=== PATIENT | female | born 1950 | race Caucasian/White ===

== ENCOUNTER 2020-10-25 13:46 | Observation (INO) | payer MEDICARE, MEDICAID ==
[~2020-10-25] VITALS: Ht 162.6 cm; Wt 69.4 kg
[2020-10-25 16:14] LABS: BASOPHILS # (AUTO) 0.1 X10'3 (0-0.2); BASOPHILS % (AUTO) 1.1 % (0-1); EOSINOPHILS # (AUTO) 0.3 X10'3 (0-0.9); EOSINOPHILS % (AUTO) 5.1 % (0-6); HEMATOCRIT 40.5 % (35.0-45.0); HEMOGLOBIN 13.8 g/dl (12.0-16.0); LYMPHOCYTES # (AUTO) 1.2 X10'3 (1.1-4.8); LYMPHOCYTES % (AUTO) 18.2 % (21-51); MEAN CORPUSCULAR HEMOGLOBIN 32.4 PG (27.0-31.0); MEAN CORPUSCULAR VOLUME 95.4 FL (78-98); MEAN PLATELET VOLUME 8.6 FL (7.4-10.4); MONOCYTES # (AUTO) 0.3 X10'3 (0-0.9); MONOCYTES % (AUTO) 5.2 % (2-12); NEUTROPHILS # (AUTO) 4.7 X10'3 (1.8-7.7); NEUTROPHILS % (AUTO) 70.4 % (42-75); PLATELET COUNT 244 X10'3 (140-440); RED BLOOD COUNT 4.25 X10'6 (4.20-5.60); RED CELL DISTRIBUTION WIDTH 12.7 % (11.5-14.5); WHITE BLOOD COUNT 6.7 X10'3 (4.5-11.0)
--- NOTE | 2020-10-25 16:25 | NUR ---
Unable to obtain urine sample at this time, patient missed specimen collection device.
--- NOTE | 2020-10-25 16:27 | NUR ---
Tele neuro in process at this time.
[2020-10-25 16:32] LABS: ALANINE AMINOTRANSFERASE 17 U/L (12-78); ALBUMIN 3.9 G/DL (3.4-5.0); ALBUMIN/GLOBULIN RATIO 0.8 (1.1-1.5); ALKALINE PHOSPHATASE 109 IU/L (46-116); ANION GAP 10 (8-16); ASPARTATE AMINO TRANSFERASE 17 U/L (10-37); BILIRUBIN,TOTAL 0.4 MG/DL (0.1-1.0); BLOOD UREA NITROGEN 25 MG/DL (7-18); BUN/CREATININE RATIO 20.8 (6.6-38.0); CALCIUM 9.3 MG/DL (8.5-10.1); CHLORIDE 102 MMOL/L (99-107); GLUCOSE 92 MG/DL (70-104); SODIUM 140 MMOL/L (135-145); TOTAL CARBON DIOXIDE 27.9 MMOL/L (24-32); TOTAL PROTEIN 8.7 G/DL (6.4-8.2); eGFR 45 ML/MIN
[2020-10-25 16:45] LABS: PARTIAL THROMBOPLASTIN TIME 25 SECONDS (22-32)
[2020-10-25] MEDS ORDERED: aspirin 325mg tablet PO ONE (17:15)
[2020-10-25] MEDS ORDERED: mag hydrox/Alum hydrox/simeth 30ml oral suspension PO PRN (17:45)
[2020-10-25] MEDS ORDERED: morphine 2 MG/ML inj. syringe IV PRN ×2 (17:45)
[2020-10-25] MEDS ORDERED: HYDROcodone/acetaminophen 10/325mg tab PO PRN (17:45)
[2020-10-25] MEDS ORDERED: ondansetron/PF 4mg/2ml inj IV PRN (17:45)
[2020-10-25] MEDS ORDERED: HYDROcodone/acetaminophen 5mg/325mg tablet PO PRN (17:45)
[2020-10-25] MEDS ORDERED: magnesium hydroxide 30ml (MOM) UD suspension PO PRN (17:45)
[2020-10-25] MEDS ORDERED: acetaminophen 325mg tablet PO PRN ×2 (17:45)
[2020-10-25] MEDS ORDERED: PARO30TA4 PO (17:52)
[2020-10-25] MEDS ORDERED: BUPR100T16 PO (17:52)
[2020-10-25] MEDS ORDERED: PROP20TA6 PO (17:52)
[2020-10-25 18:21] LABS: CHOL/HDL RATIO 3.9 (0.00-4.99); CHOLESTEROL 270 MG/DL (0-200); HDL CHOLESTEROL 69 MG/DL (35-60); LDL CHOLESTEROL 183 MG/DL (50-100); TRIGLYCERIDES 97 MG/DL (20-135)
[2020-10-25 18:34] LABS: HEMOGLOBIN A1C 5.6 % (4.5-6.2)
[2020-10-25] MEDS ORDERED: ASPI-1140 PO (19:54)
[2020-10-25] MEDS: docusate sod 100mg capsule PO SCH (19:59)
[2020-10-25 21:43] LABS: CLARITY,URINE CLEAR (Clear); COLOR,URINE YELLOW (Yellow); GLUCOSE, URINE NEGATIVE (Neg); KETONES,URINE 15 mg/dl (Neg); LEUKOCYTE ESTERASE ,URINE SMALL (Neg); NITRITES, URINE NEGATIVE (Neg); OCCULT BLOOD,URINE NEGATIVE (Neg); PROTEIN,URINE NEGATIVE (Neg); UROBILINOGEN,URINE 0.2 E.U/dL (0.2-1.0)
[2020-10-25 21:56] LABS: UA COLLECTION TYPE CLN CATCH MIDSTREAM
[2020-10-25 21:58] LABS: RBC,URINE NONE SEEN /HPF (0-2); WBC,URINE 0-4 /HPF (0-4)
[2020-10-25 21:59] LABS: BACTERIA,URINE FEW /HPF (Neg); SQUAMOUS EPITHELIAL CELL,UR NONE SEEN /LPF (FEW)
[2020-10-26 02:39] LABS: BASOPHILS # (AUTO) 0.1 X10'3 (0-0.2); EOSINOPHILS # (AUTO) 0.3 X10'3 (0-0.9); HEMATOCRIT 37.3 % (35.0-45.0); HEMOGLOBIN 12.6 g/dl (12.0-16.0); LYMPHOCYTES # (AUTO) 1.9 X10'3 (1.1-4.8); LYMPHOCYTES % (AUTO) 25.1 % (21-51); MEAN CORPUSCULAR HEMOGLOBIN 32.2 PG (27.0-31.0); MEAN CORPUSCULAR HGB CONC 33.8 g/dL (33.0-36.5); MEAN CORPUSCULAR VOLUME 95.1 FL (78-98); MEAN PLATELET VOLUME 8.7 FL (7.4-10.4); MONOCYTES # (AUTO) 0.6 X10'3 (0-0.9); MONOCYTES % (AUTO) 8.2 % (2-12); NEUTROPHILS # (AUTO) 4.8 X10'3 (1.8-7.7); NEUTROPHILS % (AUTO) 61.7 % (42-75); PLATELET COUNT 212 X10'3 (140-440); RED BLOOD COUNT 3.92 X10'6 (4.20-5.60); RED CELL DISTRIBUTION WIDTH 12.6 % (11.5-14.5); WHITE BLOOD COUNT 7.8 X10'3 (4.5-11.0)
[2020-10-26 02:56] LABS: ALBUMIN 3.5 G/DL (3.4-5.0); ANION GAP 7 (8-16); BLOOD UREA NITROGEN 29 MG/DL (7-18); BUN/CREATININE RATIO 25.4 (6.6-38.0); CALCIUM 8.7 MG/DL (8.5-10.1); CHLORIDE 108 MMOL/L (99-107); CHOL/HDL RATIO 4.1 (0.00-4.99); CHOLESTEROL 235 MG/DL (0-200); CREATININE 1.14 MG/DL (0.40-0.90); GLUCOSE 88 MG/DL (70-104); HDL CHOLESTEROL 57 MG/DL (35-60); LDL CHOLESTEROL 152 MG/DL (50-100); POTASSIUM 4.1 MMOL/L (3.5-5.1); SODIUM 143 MMOL/L (135-145); TOTAL CARBON DIOXIDE 27.8 MMOL/L (24-32); TRIGLYCERIDES 86 MG/DL (20-135); eGFR 47 ML/MIN
--- NOTE | 2020-10-26 04:00 | NUR ---
PT PLACED ON HOSPITAL BED. RAILS UP X3, CALL LIGHT IN REACH. NO S/S OF DISTRESS.
--- NOTE | 2020-10-26 05:18 | NUR ---
ATTEMPTED TO CALL REPORT TO THE FLOOR PT HAS BED ASSIGNMENT [id number]. TOLD BY NURSE TO CALL BACK IN 5 MINUTES. WILL CALL BACK
--- NOTE | 2020-10-26 06:41 | NUR ---
Patient in room ED 6. I have received report from Gail SAUER and had the opportunity to ask questions and assume patient care.
[2020-10-26 07:00] VITALS: BP 113/77
[2020-10-26] MEDS: docusate sod 100mg capsule PO SCH (08:00)
[2020-10-26] MEDS ORDERED: aspirin 325mg tablet, delayed-release (Ecotrin) PO SCH (08:00)
[2020-10-26 11:14] VITALS: BP 131/77
[2020-10-26] MEDS ORDERED: ATOR10TA PO (12:55)
[2020-10-26] MEDS ORDERED: ASPI-1071 PO (12:55)
[2020-10-26] MEDS ORDERED: FURO-150 PO (12:58)
--- NOTE | 2020-10-26 16:26 | NUR ---
Pt was escorted out by nurse with all her belongings to lobby. She used her walker and left in a private vehicle home
[2020-10-26] MEDS ORDERED: PARoxetine 30mg tablet PO SCH (20:00)
[2020-10-26] MEDS ORDERED: buPROPion 100mg tablet PO SCH (20:00)
[2020-10-26] MEDS ORDERED: propranolol 10mg tablet PO SCH (20:00)
[2020-10-26] MEDS ORDERED: PARoxetine 10mg tablet PO SCH (20:00)
== END 2020-10-26 16:20 | disposition home health service (06) ==
LOC: ER 13:47 → ED HOLD 17:47 → ORTHO 4S 10-26 06:50
PROVIDERS: ADMIT Internal Medicine; ATTEND Internal Medicine
DX: I63.81 Other cerebral infarction due to occlusion or stenosis of small artery (principal); I63.341 Cerebral infarction due to thrombosis of right cerebellar artery; G45.9 Transient cerebral ischemic attack, unspecified; I12.9 Hypertensive chronic kidney disease with stage 1 through stage 4 chronic kidney disease, or unspecified chronic kidney disease; N18.30 Chronic kidney disease, stage 3 unspecified; F32.9 Major depressive disorder, single episode, unspecified; J45.909 Unspecified asthma, uncomplicated; Z79.899 Other long term (current) drug therapy; Z98.890 Other specified postprocedural states; Z79.82 Long term (current) use of aspirin; Z88.0 Allergy status to penicillin; Z88.5 Allergy status to narcotic agent
CPT/HCPCS: 36415; 70450; 70544; 70547; 70551; 71045; 80048; 80053; 80061; 81001; 83036; 83880; 85025; 85610; 85651; 85730; 87081; 87088; 93005; 93306; 99285; G0378

== ENCOUNTER 2024-03-05 10:51 | Outpatient (CLI) | payer MEDICARE, MEDICAID ==
[~2024-03-05 10:51] MED LIST: ASPI-1071 PO; ASPI-1140 PO; ATOR10TA PO; BUPR-122 PO; FURO-150 PO; PARO30TA4 PO; PROP20TA6 PO
[2024-03-05 12:01] LABS: ALANINE AMINOTRANSFERASE 22 U/L (12-78); ALBUMIN 3.6 G/DL (3.4-5.0); ALBUMIN/GLOBULIN RATIO 0.8 (1.1-1.5); ALKALINE PHOSPHATASE 118 IU/L (46-116); ANION GAP 6 (8-16); ASPARTATE AMINO TRANSFERASE 21 U/L (10-37); BILIRUBIN,TOTAL 0.7 MG/DL (0.1-1.0); BLOOD UREA NITROGEN 28 MG/DL (7-18); BUN/CREATININE RATIO 23.1 (10.0-20.0); CALCIUM 8.7 MG/DL (8.5-10.1); CHLORIDE 105 MMOL/L (99-107); CREATININE 1.21 MG/DL (0.40-0.90); GLUCOSE 87 MG/DL (70-104); POTASSIUM 4.1 MMOL/L (3.5-5.1); SODIUM 142 MMOL/L (135-145); TOTAL CARBON DIOXIDE 31.1 MMOL/L (24-32); TOTAL PROTEIN 8.1 G/DL (6.4-8.2); eGFR 44 ML/MIN
[2024-03-05] MEDS ORDERED: iohexol 350 MG/ML 50ML vial IV ONE (13:26)
[2024-03-05] MEDS ORDERED: iohexol 350MG/ML 100ml bottle IV ONE (13:26)
== END 2024-03-05 23:59 | disposition home or self-care (01) ==
LOC: RAD 10:51
PROVIDERS: ATTEND Family Medicine
DX: I73.9 Peripheral vascular disease, unspecified (principal)
CPT/HCPCS: 36415; 73706; 80053; Q9967